=== PATIENT | male | born 1940 | race American Indian/Alaskan Native ===

== ENCOUNTER 2023-08-23 09:22 | Outpatient (CLI) | payer MEDICARE | END 2023-08-23 23:59 | disposition EMS.NT | LOC: EMS 09:22 | DX: Z03.89 Encounter for observation for other suspected diseases and conditions ruled out (principal) ==

== ENCOUNTER 2023-08-23 18:46 | Outpatient (CLI) | payer MEDICARE | END 2023-08-23 23:59 | disposition critical access hospital (66) | LOC: EMS 18:46 | DX: R53.1 Weakness (principal) | CPT/HCPCS: A0425; A0429 ==

== ENCOUNTER 2023-08-23 19:21 | Emergency (ER) | payer MEDICARE ==
--- NOTE | 2023-08-23 19:21 | ED Physician Documentation ---
History of Present Illness - Stated complaint Stated Complaint: WEAKNESS S/P DIALYSIS - History obtained from History obtained from: Patient, Family, EMS - Additonal information Additional information: HPI from patient, patient's son (at bedside), and EMS. GRICELDA. Recently relocated from [place] to [facility]. PMHx includes HD x 3 months. When I ask patient why his kidneys have failed, the most he can tell me "years of hard living" (per patient). He underwent HD today and on the drive home he noted generalized weakness, predominantly BLE that is most noticeable when he stands and ambulates. Denies fever, chest pain, dyspnea, focal/unilateral weakness. Patient had missed one HD session recently, making today his first HD session in 4 days. Review of Systems Constitutional: reports: Fatigue. denies: Fever, Myalgias Cardiac: denies: Chest pain / pressure Respiratory: denies: Dyspnea, Cough GI: reports: Reviewed and negative Musculoskeletal: denies: Back pain, Extremity pain Neurologic: reports: Generalized weakness. denies: Focal weakness, Numbness PD PAST MEDICAL HISTORY - Past Medical History Past Medical History: Yes Cardiovascular: Hypertension : Dialysis - Present Medications Home Medications: Ambulatory Orders Medication Instructions Recorded Confirmed Doxazosin [Cardura] 4 mg PO DAILY 08/23/23 08/23/23 Folic Acid/Vit B Complex and C 0.8 mg PO DAILY 08/23/23 08/23/23 [Lyndsey-Flo Tablet] Furosemide [Lasix] 40 mg PO DAILY 08/23/23 08/23/23 Irbesartan 75 mg PO DAILY 08/23/23 08/23/23 Isosorbide Mononitrate ER [Imdur] 30 mg PO DAILY 08/23/23 08/23/23 Levothyroxine [Synthroid] 150 mcg PO DAILY 08/23/23 08/23/23 Tamsulosin [Flomax] 0.4 mg PO DAILY 08/23/23 08/23/23 amLODIPine [Norvasc] 10 mg PO DAILY 08/23/23 08/23/23 carvediloL [Coreg] 25 mg PO DAILY 08/23/23 08/23/23 - Allergies Allergies/Adverse Reactions: Allergies Allergy/AdvReac Type Severity Reaction Status Date / Time No Known Drug Allergies Allergy Verified 08/23/23 19:30 PD ED PE NORMAL - Vitals Vital signs reviewed: Yes - General General: Alert and oriented X 3, No acute distress, Well developed/nourished - HEENT HEENT: Other (pasty mucous membranes) - Cardiac Cardiac: RRR - Respiratory Respiratory: No respiratory distress, Clear bilaterally - Abdomen Abdomen: Soft, Non tender - Derm Derm: Normal color, Warm and dry - Extremities Extremities: Other (mild/1+ BLE edema) - Neuro Neuro: Alert and oriented X 3 Eye Opening: Spontaneous Motor: Obeys Commands Verbal: Oriented GCS Score: 15 PD ED PE EXPANDED - Cardiac Cardiac: Murmur Present (2/6 MICHELLE left sternal border) Results - Vitals Vitals: Vital Signs - 24 hr 08/23/23 08/23/23 08/23/23 19:27 19:30 21:28 Temperature 37.2 C 36.2 C L Heart Rate 77 74 81 Respiratory 18 16 16 Rate Blood Pressure 206/59 H 154/69 H 146/70 H O2 Saturation 94 96 96 Oxygen O2 Source Room air - EKG (time done) No standard instances EKG releavant findings:: EKG personally interpreted by author of this note. Relevant findings are: Rate: Rate (enter#) (74) [place]: LAD Intervals: Other (NSIVCD) QRS: LVH Ischemia: Non specific changes (ST elevations all V leads likely due to IVCD) Compare to prior EKG: Old EKG unavailable - Labs Labs: Laboratory Tests 08/23/23 08/23/23 19:40 19:40 WBC 3.6 L RBC 4.03 L Hgb 9.5 L Hct 30.0 L MCV 74.4 L MCH 23.6 L MCHC 31.7 L RDW 19.7 H Plt Count 225 MPV 11.3 Neut # (Auto) 2.5 Lymph # (Auto) 0.4 L Miller # (Auto) 0.5 Eos # (Auto) 0.1 Baso # (Auto) 0.1 Absolute Nucleated RBC 0.03 Nucleated RBC % 0.8 Sodium 136 Potassium 3.9 Chloride 94 L Carbon Dioxide 34 H Anion Gap 8.0 BUN 19 Creatinine 4.0 H Estimated GFR (MDRD) 14 L Glucose 100 Calcium 9.1 Phosphorus 3.2 Magnesium 1.7 Total Bilirubin 1.7 H AST 19 ALT 8 L Alkaline Phosphatase 64 Total Protein 6.9 Albumin 4.1 Globulin 2.8 Albumin/Globulin Ratio 1.5 Lipase 19 TSH 11.48 H - Rads (name of study) chest xray Relevant Findings:: Prelim report reviewed, See rad report PD Medical Decision Making - ED course Complexity details: reviewed results, re-evaluated patient, considered differential, d/w patient ED course: Patient recently moved to [facility] from [place] and thus no old results/records available for comparative purposes. No concerning or diagnostic findings on tonight's blood tests despite some abnormalities. Mild leukopenia (WBC 3.6), mild anemia (hemoglobin 9.5 with low indices). Normal sodium level, potassium level, calcium, phosphorus, magnesium levels. Elevated TSH (11.48). Bilirubin is 1.7 but otherwise normal LFTs. Unremarkable chest x-ray. EKG with nonspecific intraventricular conduction delay and diffuse ST elevations in all the leads likely due to the IVCD. As patient is new to the area, there are no previous test results for comparative purposes. I also queried the [facility] system for [facility] and patient is not even in that system. Results discussed with patient and patient's son (who is in the ED at patient's bedside). The cause of his weakness is not apparent this time, but I suspect it is due to having received hemodialysis earlier today. He is given 250 cc normal saline IV bolus. Return precautions reviewed. Patient's son says that the patient is supposed to have another dialysis session tomorrow. Whether or not this actually takes place, it would represent a good opportunity for in- person reevaluation and I strongly encouraged the son to make sure the patient keeps this appointment. Departure - Departure Disposition: 01 Home, Self Care Clinical Impression: Weakness Condition: Good Instructions: ED Weakness UKO Comments: There were no concerning nor diagnostic findings on tonight's tests, including the blood tests, chest x-ray, EKG. There were some abnormalities on the EKG, but not in a pattern that would suggest an acute cardiac issue. I do not have a previous EKG for comparative purposes available at this time. As we discussed, there were abnormalities on the blood tests. For example, your white blood cell count and red blood cell count were slightly below normal range, but not to a concerning extent. Your TSH (thyroid-stimulating hormone) was rather high; I think this is likely an incidental finding, but you should mention this, and the other abnormalities, to your early childhood assistant as well as your primary care provider, and be sure to continue taking all of your prescribed medications per the label instructions. Your primary care provider might recommend repeating some of these labs in the next several days or week. Forms: PCP List Discharge Date/Time: 08/23/23 21:28
[2023-08-23 19:46] LABS: BASOPHILS # (AUTO) 0.1 10^3/uL (0.0-0.1); BASOPHILS % (AUTO) 1.7 %; EOSINOPHILS # (AUTO) 0.1 10^3/uL (0.0-0.7); EOSINOPHILS % (AUTO) 2.2 %; HGB - HEMOGLOBIN 9.5 g/dL (14.0-18.0); LYMPHOCYTES # (AUTO) 0.4 10^3/uL (1.5-3.5); LYMPHOCYTES % (AUTO) 12.1 %; MEAN CORPUSCULAR HEMOGLOBIN 23.6 pg (27.0-31.0); MEAN CORPUSCULAR HGB CONC 31.7 g/dL (32.0-36.0); MEAN CORPUSCULAR VOLUME 74.4 fL (80.0-94.0); MEAN PLATELET VOLUME 11.3 fL (7.4-11.4); MONOCYTES # (AUTO) 0.5 10^3/uL (0.0-1.0); MONOCYTES % (AUTO) 14.9 %; NEUTROPHILS # (AUTO) 2.5 10^3/uL (1.5-6.6); NEUTROPHILS % (AUTO) 68.5 %; NRBC ABSOLUTE COUNT (AUTO) 0.03 x10^3/uL; NUCLEATED RED BLOOD CELLS AUTO 0.8 /100WBC; PLT - PLATELET COUNT 225 10^3/uL (130-450); RED BLOOD COUNT 4.03 10^6/uL (4.70-6.10); RED CELL DISTRIBUTION WIDTH 19.7 % (12.0-15.0); WHITE BLOOD COUNT 3.6 x10^3/uL (4.8-10.8)
[2023-08-23 19:55] LABS: MAGNESIUM 1.7 mg/dL (1.7-2.3)
[2023-08-23 20:01] LABS: ALBUMIN 4.1 g/dL (3.2-5.5); ALBUMIN/GLOBULIN RATIO 1.5 (1.0-2.2); BILIRUBIN,TOTAL 1.7 mg/dL (0.2-1.0); CALCIUM 9.1 mg/dL (8.5-10.3); PHOSPHORUS 3.2 mg/dL (2.5-5.0); POTASSIUM 3.9 mmol/L (3.5-4.5); TOTAL PROTEIN 6.9 g/dL (6.4-8.9)
[2023-08-23 20:08] VITALS: O2SAT 96
[2023-08-23 20:14] LABS: THYROID STIMULATING HORMONE 11.48 uIU/mL (0.34-5.60)
[2023-08-23] MEDS: SODIUM CHLORIDE 0.9% 250 ML IV STA (20:27)
--- NOTE | 2023-08-23 20:27 | XRAY Report ---
PROCEDURE: Chest 1V INDICATIONS: weakness TECHNIQUE: One view of the chest was acquired. COMPARISON: None. FINDINGS: Surgical changes and devices: Right central venous catheter with distal tip projecting over the righ t atrium. Lungs and pleura: No pleural effusions or pneumothorax. Lungs are clear. Mediastinum: Mediastinal contours appear normal. Heart size is normal. Bones and chest wall: No suspicious bony lesions. Overlying soft tissues appear unremarkable. IMPRESSION: No acute cardiopulmonary process. Reviewed by: Ximena Sawant MD, PhD on 08/23/2023 8:25 PM PDT Approved by: Ximena Sawant MD, PhD on 08/23/2023 8:25 PM PDT Station ID: [id number]
[2023-08-23 21:39] VITALS: BP 146/70
== END 2023-08-23 21:28 | disposition home or self-care (01) ==
LOC: ED 19:21
DX: R53.1 Weakness (principal); D72.819 Decreased white blood cell count, unspecified; D64.9 Anemia, unspecified; I12.0 Hypertensive chronic kidney disease with stage 5 chronic kidney disease or end stage renal disease; N18.6 End stage renal disease; Z99.2 Dependence on renal dialysis; Z79.899 Other long term (current) drug therapy
CPT/HCPCS: 36415; 80053; 83690; 83735; 84100; 84443; 85025; 93005; 99283; 99284

== ENCOUNTER 2023-09-14 18:24 | Outpatient (CLI) | payer MEDICARE | END 2023-09-14 18:25 | disposition short-term general hospital (02) | LOC: EMS 18:24 | DX: Z76.89 Persons encountering health services in other specified circumstances (principal) | CPT/HCPCS: A0425; A0429 ==

== ENCOUNTER 2023-10-11 18:35 | Outpatient (CLI) | payer MEDICARE | END 2023-10-11 18:36 | disposition left against medical advice (07) | LOC: EMS 18:35 | DX: Z03.89 Encounter for observation for other suspected diseases and conditions ruled out (principal) ==

== ENCOUNTER 2023-10-16 02:25 | Outpatient (CLI) | payer MEDICARE | END 2023-10-16 23:59 | disposition critical access hospital (66) | LOC: EMS 02:25 | DX: S01.112A Laceration without foreign body of left eyelid and periocular area, initial encounter (principal); S01.21XA Laceration without foreign body of nose, initial encounter; W06.XXXA Fall from bed, initial encounter; Y92.122 Bedroom in nursing home as the place of occurrence of the external cause | CPT/HCPCS: A0425; A0429 ==

== ENCOUNTER 2023-10-16 02:30 | Emergency (ER) | payer MEDICARE ==
--- NOTE | 2023-10-16 02:57 | ED Physician Documentation ---
History of Present Illness - Stated complaint Stated Complaint: FALL - Chief complaint Chief Complaint: Laceration - History obtained from History obtained from: Patient - Additonal information Additional information: 83-year-old man not on blood thinners presents status post mechanical fall with head injury tonight at [facility]. Patient has a gash to his left forehead. Also has a laceration to the bridge of the nose. denies pain anywhere else PD PAST MEDICAL HISTORY - Past Medical History Cardiovascular: Hypertension : Dialysis - Past Surgical History Past Surgical History: Yes - Present Medications Home Medications: Ambulatory Orders Medication Instructions Recorded Confirmed Doxazosin [Cardura] 4 mg PO DAILY 08/23/23 08/23/23 Folic Acid/Vit B Complex and C 0.8 mg PO DAILY 08/23/23 08/23/23 [Lyndsey-Flo Tablet] Furosemide [Lasix] 40 mg PO DAILY 08/23/23 08/23/23 Irbesartan 75 mg PO DAILY 08/23/23 08/23/23 Isosorbide Mononitrate ER [Imdur] 30 mg PO DAILY 08/23/23 08/23/23 Levothyroxine [Synthroid] 150 mcg PO DAILY 08/23/23 08/23/23 Tamsulosin [Flomax] 0.4 mg PO DAILY 08/23/23 08/23/23 amLODIPine [Norvasc] 10 mg PO DAILY 08/23/23 08/23/23 carvediloL [Coreg] 25 mg PO DAILY 08/23/23 08/23/23 - Allergies Allergies/Adverse Reactions: Allergies Allergy/AdvReac Type Severity Reaction Status Date / Time No Known Drug Allergies Allergy Verified 10/16/23 02:58 - Social History Does the pt smoke?: No Smoking Status: Never smoker PD ED PE NORMAL - Vitals Vital signs reviewed: Yes - General General: No acute distress, Well developed/nourished, Other (alert and mentating at baseline) - HEENT HEENT: Atraumatic, PERRL, EOMI, Moist mucous membranes, Pharynx benign, Other (superficial laceration to bridge of nose, well approximated. deep 3cm laceration to L forehead) - Neck Neck: No bony TTP, C-Spine cleared by NEXUS criteria - Cardiac Cardiac: RRR - Respiratory Respiratory: No respiratory distress, Clear bilaterally - Abdomen Abdomen: Non tender, Non distended - Back Back: No spinal TTP - Derm Derm: Normal color, Warm and dry Results - Vitals Vitals: Vital Signs - 24 hr 10/16/23 10/16/23 02:35 02:58 Temperature 36.2 C L Heart Rate 83 81 Respiratory 12 16 Rate Blood Pressure 167/79 H 167/79 H O2 Saturation 90 L 92 Oxygen O2 Source Room air Oxygen Flow Rate 3 Procedures - Laceration (location) Face left Length in cm: 3 Wound type: Linear Neurovascular status: Sensory intact, Motor intact, Vascular intact Anesthesia: Lidocaine 1% with epi Wound preparation: Irrigated copiously NS Skin layer closure: Nylon, Size #-0 - enter number (6), Sutures - enter # (6) Other: Patient tolerated well, No complications, Tetanus booster given PD Medical Decision Making - ED course ED course: 83yM p/w laceration to forehead s/p fall from bed at [facility]. also with superficial lac to nose without tenderness or deformity. ct head negative for pathology. lac repaired without issue. plan to f/u outpatient with pcp. return precautions given. Departure - Departure Clinical Impression: Head injury, Laceration, Fall from standing Condition: Stable Instructions: ED Laceration All Comments: You were seen in the emergency department for laceration of the forehead and for evaluation after a fall. You need to get those stitches removed in 3-5 days at walk in clinic. Please follow-up with your primary care provider and return to the emergency department if you have any new or worsening symptoms or other concerns. Forms: PCP List
[2023-10-16] MEDS: TETANUS/DIPHTHERIA/PERTUSSIS 0.5 ML SYRINGE IM ONE (04:00)
--- NOTE | 2023-10-16 07:44 | CT Report ---
PROCEDURE: Head WO INDICATIONS: fall +HT no AC TECHNIQUE: Noncontrast 4.5 mm thick angled axial sections acquired from the foramen magnum to the vertex. For r adiation dose reduction, the following was used: automated exposure control, adjustment of mA and/or kV according to patient size. COMPARISON: None. FINDINGS: Image quality: Diagnostic. CSF spaces: Basal cisterns are patent. No extra-axial fluid collections. Ventricles are normal in size and shape. Brain: No midline shift. No intracranial masses or hemorrhage. Mahoney-white matter interface is norm al. Chronic right frontal lacunar infarct. Skull and face: Left nasal bone deformity, age indeterminant. Left frontal scalp hematoma and perior bital swelling. No underlying calvarial fracture. Bilateral lens replacement. Sinuses: Mild mucosal thickening of the left maxillary sinus and small mucous retention cysts. Masto ids are clear. IMPRESSION: No acute intracranial pathology. Left frontal scalp hematoma and periorbital hematoma. No associated craniofacial fracture. Focal left nasal bone deformity, age indeterminant. Recommend clinical correlation for presence of fo mariella tenderness Findings are concordant with preliminary interpretation provided by [facility]. Reviewed by: Ximean Sawant MD, PhD on 10/16/2023 7:42 AM PDT Approved by: Ximena Sawant MD, PhD on 10/16/2023 7:42 AM PDT Station ID: [id number]
--- NOTE | 2023-10-16 07:45 | XRAY Report ---
PROCEDURE: Chest 1V INDICATIONS: s/p fall TECHNIQUE: One view of the chest was acquired. COMPARISON: None. FINDINGS: Surgical changes and devices: Left central venous catheter with tip projecting over the lower SVC. Lungs and pleura: No pneumothorax. Query small left pleural effusion. Lung volumes are slightly low. Diffuse interstitial prominence. Mediastinum: Mediastinal contours appear normal. Heart size is enlarged. Bones and chest wall: No suspicious bony lesions. Overlying soft tissues appear unremarkable. IMPRESSION: Enlarged heart with diffuse interstitial prominence may represent mild pulmonary edema from volume ov erload. No focal dense airspace consolidation. Query small left pleural effusion. Reviewed by: Xmiena Sawant MD, PhD on 10/16/2023 7:44 AM PDT Approved by: Ximena Sawant MD, PhD on 10/16/2023 7:44 AM PDT Station ID: [id number]
[2023-10-16 08:45] VITALS: BP 165/75; O2SAT 97
== END 2023-10-16 09:15 | disposition home or self-care (01) ==
LOC: EDUNIT# → ED 02:30
DX: S01.81XA Laceration without foreign body of other part of head, initial encounter (principal); S01.21XA Laceration without foreign body of nose, initial encounter; W06.XXXA Fall from bed, initial encounter; Y92.092 Bedroom in other non-institutional residence as the place of occurrence of the external cause; I10 Essential (primary) hypertension; Z99.2 Dependence on renal dialysis; Z23 Encounter for immunization
CPT/HCPCS: 12013; 90471; 99283; 99284